=== PATIENT | female | born 1970 | race Caucasian/White ===

== ENCOUNTER → 2017-04-29 | Outpatient (CLI) | payer BC, MEDICARE ==
[2017-04-29 11:26] LABS: HEMATOCRIT 43.1 % (35.0-45.0); HEMOGLOBIN 14.3 gm/dL (12.0-16.0); MEAN CELL VOLUME 86.4 FL (83-96); MEAN CORPUSCULAR HEMOGLOBIN 28.8 PG (28-34); MEAN CORPUSCULAR HGB CONC 33.3 g/dL (30-36); MEAN PLATELET VOLUME 7.1 FL (6.5-11.5); RED BLOOD COUNT 4.98 X10e (3.90-5.30); RED CELL DISTRIBUTION WIDTH 14.7 % (11.0-15.5); WHITE BLOOD COUNT 13.9 X10e3 (4.0-10.5)
== END | disposition home or self-care (01) ==
LOC: CLAB 11:02
PROVIDERS: Physician Assistant
DX: M25.561 Pain in right knee (principal)
CPT/HCPCS: 36415; 85027; 85652; 86140